=== PATIENT | female | born 1965 | race African-American/Black ===

== ENCOUNTER 2016-10-30 04:10 | Emergency (ER) | payer OTHER, MEDICAID ==
[~2016-10-30] VITALS: Ht 180.3 cm; Wt 122.0 kg
[2016-10-30] MEDS ORDERED: KETOROLAC 60MG/2ML VIAL IM ONE (06:30)
[2016-10-30] MEDS ORDERED: HYDROCODONE/ACETAMINOPHEN 5/325MG TABLET PO ONE (07:45)
[2016-10-30 08:29] VITALS: BP 116/72
== END 2016-10-30 09:14 | disposition home or self-care (01) ==
LOC: ER 04:15
DX: S82.142A Displaced bicondylar fracture of left tibia, initial encounter for closed fracture (principal); I10 Essential (primary) hypertension; F17.200 Nicotine dependence, unspecified, uncomplicated; V49.69XA Unspecified car occupant injured in collision with other motor vehicles in traffic accident, initial encounter; Y93.01 Activity, walking, marching and hiking; Y99.9 Unspecified external cause status; Y92.410 Unspecified street and highway as the place of occurrence of the external cause; M25.512 Pain in left shoulder
CPT/HCPCS: 29515; 73030; 73562; 73590; 73610; 96372; 99284; J1885